=== PATIENT | male | born 1965 | race Caucasian/White ===

== ENCOUNTER 2020-03-02 15:45 | Inpatient (IN) | payer BC, SELFPAY ==
[2020-03-02] VITALS (14 sets, daily range): BP systolic 96–129; BP diastolic 63–87; PULSE 78–121; RESP 14–24; TEMP 36.5–36.9; O2SAT 95–96; BMI 35.2
--- NOTE | 2020-03-02 16:18 | ECG_ITS ---
[facility] Test Date: 2020-03-02 Pat Name: Alfie Sauceda Jr Department: Room: Gender: Male Vice President Of Recruiting: aiden : 1965 Requested By: Bronson Willoughby Order Number: [id number] Mario Alberto MD: Evita Andrade M.D. Measurements Intervals [place] Rate: 152 P: NV: QRS: 1 QRSD: 78 T: 7 QT: 260 QTc: 414 Interpretive Statements ATRIAL FIBRILLATION WITH RAPID VENTRICULAR RESPONSE ABNORMAL RHYTHM ECG No previous ECG available for comparison Electronically Signed On 03-02-2020 20:19:45 MATTRESS MAKER by Evita Andrade M.D. [email or web address] [facility] [email or web address].[email or web address]/store/[id number]
--- NOTE | 2020-03-02 16:18 | XRR_ITS ---
PROCEDURE INFORMATION: Exam: XR Chest, 1 View Exam date and time: 03/02/2020 4:40 PM Age: 55 years old Clinical indication: Chest pain; Additional info: Chest pain, irregular/rapid heart beat TECHNIQUE: Imaging protocol: XR of the chest Views: 1 view. Total images: 1 COMPARISON: No relevant prior studies available. FINDINGS: Lungs: Unremarkable. No consolidation. Pleural space: Unremarkable. No pleural effusion. No pneumothorax. Heart/Mediastinum: Unremarkable. No cardiomegaly. Bones/joints: Unremarkable. XR/XR chest 1V portable [id number] IMPRESSION: No acute findings.
--- NOTE | 2020-03-02 16:27 | W.ED.ARRPALP ---
Documented by User: Bronson King DO 03/03/20 08:43 HPI - Arrhythmia/Palpitations General: Chief Complaint: Arrhythmia/Palpitations Stated Complaint: IRR PULSE/SENT BY LOWE Time Seen by Provider: 03/02/20 16:18 History of Present Illness: HPI narrative: 55-year-old male presents to the emergency room with complaint of rapid heart rate. He has a history of hypertension. He was seen by his doctor and there regular office was noted to be in atrial fibrillation was referred to the emergency room on arrival here he is chest pain-free no shortness of breath no dyspnea or diaphoresis but he is having A. fib with RVR which is new for him. He denies any recent change in medications been taking all of his regular medications as well. MD complaint: rapid heart beat, heart racing and irregular heart beat Onset (ago): unknown Duration: constant Severity: mild Context: occurred during rest Arrhythmia history: other (None) Associated symptoms: Deny anxiety, cough, diaphoresis, muscle cramps, nausea, paresthesias, pre-syncope, sense of impending doom, short of breath, syncope or vomiting Review of Systems Const: Denies: diaphoresis ENMT: Denies: throat pain, ear or mastoid pain, nasal discharge or nasal congestion Card: Denies: syncope or pre-syncope Resp: Denies: dyspnea, productive cough or non-productive cough GI: Denies: nausea or vomiting : Denies: flank pain, dysuria, urinary frequency or urinary urgency Musc: Denies: muscle cramps Skin/Breast: Denies: rash or pruritus Psych: Denies: anxiety PFSH ED PFSH: Medical History Hypertension Physical Exam Const: COMMON NORMALS: no acute distress GENERAL APPEARANCE: cooperative and comfortable ORIENTATION/CONSCIOUSNESS: Yes awake, Yes oriented to person, Yes oriented to place and Yes oriented to time HENMT: COMMON NORMALS: normocephalic, atraumatic and hearing grossly normal bilaterally HEAD & SCALP: normocephalic and atraumatic Neck/C-Spine: COMMON NORMALS: no JVD Resp: COMMON NORMALS: normal respiratory effort, No retractions, No use of accessory muscles and clear to auscultation bilaterally AUSCULTATION: clear to auscultation bilaterally Cardio: COMMON NORMALS: no JVD, regular rate, regular rhythm and No murmurs present (Cardio) RATE: regular rate RHYTHM: regular rhythm GI: COMMON NORMALS: Soft to palpation and No hepatosplenomegaly present AUSCULTATION: Yes normoactive bowel sounds PALPATION: Yes Soft to palpation, No Tenderness to palpation present (GI), No Guarding due to palpation present (GI) and Yes No hepatosplenomegaly present Extremity: COMMON NORMALS: normal to inspection, capillary refill normal, no clubbing, cyanosis or edema, no calf tenderness and no pedal edema Neuro: SENSORIUM/ORIENTATION: Yes oriented to person, Yes oriented to place and Yes oriented to time Skin: COMMON NORMALS: no rashes or lesions noted GENERAL SKIN EXAM: no rashes or lesions noted Course Vital Signs: Vital signs: Vital Signs Temperature 96.5 F L 03/03/20 07:10 Pulse Rate 86 03/03/20 07:10 Respiratory Rate 20 H 03/03/20 07:10 Blood Pressure 130/87 03/03/20 08:17 Pulse Oximetry 92 03/03/20 07:10 MDM - Arrhythmia/Palpitations MDM Narrative: Medical decision making narrative: .Return to Dr. Rashid at change of shift see his notes for final diagnosis and disposition Lab Data: Labs: Lab Results 03/02/20 03/02/20 03/02/20 Range/Units 16:34 16:34 16:34 WBC 6.8 (4.0-10.0) 10^3/ uL RBC 5.02 (4.1-5.3) 10^6/u L Hgb 15.7 (11.7-16.6) g/dL Hct 44.2 (42.0-52.0) % MCV 88.0 (80-94) fL MCH 31.3 (28.0-34.0) pg MCHC 35.5 (30.0-36.0) g/dL RDW 12.0 L (12.1-15.1) % Plt Count 275 (130-400) 10^3/c mm MPV 9.6 (7.4-10.4) fL Neut % (Auto) 58.9 % Lymph % (Auto) 28.5 % Rice % (Auto) 9.4 % Eos % (Auto) 1.8 % Baso % (Auto) 1.0 % Neut # (Auto) 3.99 (1.8-7.7) 10^3/u L Lymph # (Auto) 1.9 (0.8-4.8) 10^3/u L Rice # (Auto) 0.6 (0.2-0.9) 10^3/u L Eos # (Auto) 0.1 (0.0-0.8) 10^3/u L Baso # (Auto) 0.1 (0.0-0.1) 10^3/u L Nucleated RBC % (a uto) 0 % Nucleated RBCs # 0.0 /100WBC D-Dimer (0-0.59) ug/mIFE U Sodium 138 (136-145) mmol/L Potassium 4.5 (3.5-5.1) mmol/L Chloride 104 (98-107) mmol/L Carbon Dioxide 23 (22-29) mmol/L Anion Gap 15.5 (5-19) BUN 14 (6-20) mg/dL Creatinine 0.9 (0.7-1.2) mg/dL GFR Calculation 87.6 L (90-130) mL/min Glucose 109 (65-115) mg/dL Calculated Osmolal ity 287 (285-295) mOsm/k g Calcium 9.4 (8.5-10.5) mg/dL Magnesium (1.7-2.3) mg/dL Total Bilirubin 0.7 (0.15-1.2) mg/dL AST 20 (0-40) U/L ALT 35 (0-41) U/L Alkaline Phosphata se 94 (40-130) IU/L Troponin T Baselin e 6 (0-15) ng/L Total Protein 6.7 (6.6-8.7) g/dL Albumin 4.4 (3.5-5.2) g/dL Globulin 2.3 (1.3-4.6) g/dL TSH 1.62 (0.27-4.20) uIU/ mL Free T4 1.11 (0.82-1.77) ng/d L 03/02/20 03/02/20 Range/Units 16:34 16:34 WBC (4.0-10.0) 10^3/ uL RBC (4.1-5.3) 10^6/u L Hgb (11.7-16.6) g/dL Hct (42.0-52.0) % MCV (80-94) fL MCH (28.0-34.0) pg MCHC (30.0-36.0) g/dL RDW (12.1-15.1) % Plt Count (130-400) 10^3/c mm MPV (7.4-10.4) fL Neut % (Auto) % Lymph % (Auto) % Rice % (Auto) % Eos % (Auto) % Baso % (Auto) % Neut # (Auto) (1.8-7.7) 10^3/u L Lymph # (Auto) (0.8-4.8) 10^3/u L Rice # (Auto) (0.2-0.9) 10^3/u L Eos # (Auto) (0.0-0.8) 10^3/u L Baso # (Auto) (0.0-0.1) 10^3/u L Nucleated RBC % (a uto) % Nucleated RBCs # /100WBC D-Dimer 0.37 (0-0.59) ug/mIFE U Sodium (136-145) mmol/L Potassium (3.5-5.1) mmol/L Chloride (98-107) mmol/L Carbon Dioxide (22-29) mmol/L Anion Gap (5-19) BUN (6-20) mg/dL Creatinine (0.7-1.2) mg/dL GFR Calculation (90-130) mL/min Glucose (65-115) mg/dL Calculated Osmolal ity (285-295) mOsm/k g Calcium (8.5-10.5) mg/dL Magnesium 1.9 (1.7-2.3) mg/dL Total Bilirubin (0.15-1.2) mg/dL AST (0-40) U/L ALT (0-41) U/L Alkaline Phosphata se (40-130) IU/L Troponin T Baselin e (0-15) ng/L Total Protein (6.6-8.7) g/dL Albumin (3.5-5.2) g/dL Globulin (1.3-4.6) g/dL TSH (0.27-4.20) uIU/ mL Free T4 (0.82-1.77) ng/d L EKG Data^: EKG 1: Other EKG comments: Chest X-Ray 03/02/20 16:18 IMPRESSION: No acute findings. Discharge Plan Discharge Patient Disposition: Admitted As Inpatient Admit Provider: Oxana Meza Clinical Impression: Atrial fibrillation Condition: Stable Coding Level of Care Code ED Private Branch Exchange Service Advisor for Chg Fwd Exam Comprehensive Documented by User: Sanket Rashid MD 03/02/20 18:20 HPI - Arrhythmia/Palpitations General: Chief Complaint: Arrhythmia/Palpitations Stated Complaint: IRR PULSE/SENT BY LOWE Time Seen by Provider: 03/02/20 16:18 History of Present Illness: Associated symptoms: Deny nausea or vomiting Review of Systems Const: Denies: fever(s), chills, body aches or change in appetite Eyes: Denies: blurry vision or eye discomfort ENMT: Denies: throat pain or dental pain Card: Reports: palpitations; Denies: chest pain Resp: Denies: dyspnea GI: Denies: abdominal pain, nausea, vomiting or diarrhea : Denies: dysuria Musc: Denies: neck pain or back pain Skin/Breast: Denies: rash Neuro: Denies: headache(s) Psych: Denies: depression Reynold/Lymph: Denies: easy bruising All/Imm: Denies: urticaria PFS ED PFSH: Medical History Hypertension Physical Exam Const: COMMON NORMALS: no acute distress, patient oriented x3 and healthy appearing HENMT: COMMON NORMALS: normocephalic and atraumatic HEAD & SCALP: normocephalic and atraumatic Eye: COMMON NORMALS: Equal, round and reactive pupils present and EOMs intact bilaterally PUPIL: Yes Equal, round and reactive pupils present Neck/C-Spine: COMMON NORMALS: full ROM and supple Chest: COMMONS NORMALS: normal inspection of the chest and normal palpation of entire chest wall Resp: COMMON NORMALS: normal respiratory effort, No retractions, No use of accessory muscles and clear to auscultation bilaterally AUSCULTATION: clear to auscultation bilaterally Cardio: COMMON NORMALS: No murmurs present (Cardio) RATE: tachycardic RHYTHM: abnormal rhythm irregularly irregular GI: COMMON NORMALS: Normal to inspection, nondistended, normoactive bowel sounds present, Soft to palpation, non-tender and no masses PALPATION: Yes Soft to palpation Extremity: COMMON NORMALS: normal to inspection and full ROM Neuro: COMMON NORMALS: patient oriented x3, moves all extremities and no focal motor deficits Psych: COMMON NORMALS: mental status grossly normal, Normal thought process present and cooperative THOUGHT PROCESS: Normal thought process present Skin: COMMON NORMALS: no rashes or lesions noted and no wounds GENERAL SKIN EXAM: no rashes or lesions noted Course Vital Signs: Vital signs: Vital Signs Temperature 96.5 F L 03/03/20 07:10 Pulse Rate 86 03/03/20 07:10 Respiratory Rate 20 H 03/03/20 07:10 Blood Pressure 130/87 03/03/20 08:17 Pulse Oximetry 92 03/03/20 07:10 MDM - Arrhythmia/Palpitations MDM Narrative: Medical decision making narrative: Patient presents here with new onset A. fib with RVR. Patient's been well-appearing here and was started on a Cardizem drip. Spoke to hospitalist and will admit at this time. Lab Data: Labs: Lab Results 03/02/20 03/02/20 03/02/20 Range/Units 16:34 16:34 16:34 WBC 6.8 (4.0-10.0) 10^3/ uL RBC 5.02 (4.1-5.3) 10^6/u L Hgb 15.7 (11.7-16.6) g/dL Hct 44.2 (42.0-52.0) % MCV 88.0 (80-94) fL MCH 31.3 (28.0-34.0) pg MCHC 35.5 (30.0-36.0) g/dL RDW 12.0 L (12.1-15.1) % Plt Count 275 (130-400) 10^3/c mm MPV 9.6 (7.4-10.4) fL Neut % (Auto) 58.9 % Lymph % (Auto) 28.5 % Rice % (Auto) 9.4 % Eos % (Auto) 1.8 % Baso % (Auto) 1.0 % Neut # (Auto) 3.99 (1.8-7.7) 10^3/u L Lymph # (Auto) 1.9 (0.8-4.8) 10^3/u L Rice # (Auto) 0.6 (0.2-0.9) 10^3/u L Eos # (Auto) 0.1 (0.0-0.8) 10^3/u L Baso # (Auto) 0.1 (0.0-0.1) 10^3/u L Nucleated RBC % (a uto) 0 % Nucleated RBCs # 0.0 /100WBC D-Dimer (0-0.59) ug/mIFE U Sodium 138 (136-145) mmol/L Potassium 4.5 (3.5-5.1) mmol/L Chloride 104 (98-107) mmol/L Carbon Dioxide 23 (22-29) mmol/L Anion Gap 15.5 (5-19) BUN 14 (6-20) mg/dL Creatinine 0.9 (0.7-1.2) mg/dL GFR Calculation 87.6 L (90-130) mL/min Glucose 109 (65-115) mg/dL Calculated Osmolal ity 287 (285-295) mOsm/k g Calcium 9.4 (8.5-10.5) mg/dL Magnesium (1.7-2.3) mg/dL Total Bilirubin 0.7 (0.15-1.2) mg/dL AST 20 (0-40) U/L ALT 35 (0-41) U/L Alkaline Phosphata se 94 (40-130) IU/L Troponin T Baselin e 6 (0-15) ng/L Total Protein 6.7 (6.6-8.7) g/dL Albumin 4.4 (3.5-5.2) g/dL Globulin 2.3 (1.3-4.6) g/dL TSH 1.62 (0.27-4.20) uIU/ mL Free T4 1.11 (0.82-1.77) ng/d L 03/02/20 03/02/20 Range/Units 16:34 16:34 WBC (4.0-10.0) 10^3/ uL RBC (4.1-5.3) 10^6/u L Hgb (11.7-16.6) g/dL Hct (42.0-52.0) % MCV (80-94) fL MCH (28.0-34.0) pg MCHC (30.0-36.0) g/dL RDW (12.1-15.1) % Plt Count (130-400) 10^3/c mm MPV (7.4-10.4) fL Neut % (Auto) % Lymph % (Auto) % Rice % (Auto) % Eos % (Auto) % Baso % (Auto) % Neut # (Auto) (1.8-7.7) 10^3/u L Lymph # (Auto) (0.8-4.8) 10^3/u L Rice # (Auto) (0.2-0.9) 10^3/u L Eos # (Auto) (0.0-0.8) 10^3/u L Baso # (Auto) (0.0-0.1) 10^3/u L Nucleated RBC % (a uto) % Nucleated RBCs # /100WBC D-Dimer 0.37 (0-0.59) ug/mIFE U Sodium (136-145) mmol/L Potassium (3.5-5.1) mmol/L Chloride (98-107) mmol/L Carbon Dioxide (22-29) mmol/L Anion Gap (5-19) BUN (6-20) mg/dL Creatinine (0.7-1.2) mg/dL GFR Calculation (90-130) mL/min Glucose (65-115) mg/dL Calculated Osmolal ity (285-295) mOsm/k g Calcium (8.5-10.5) mg/dL Magnesium 1.9 (1.7-2.3) mg/dL Total Bilirubin (0.15-1.2) mg/dL AST (0-40) U/L ALT (0-41) U/L Alkaline Phosphata se (40-130) IU/L Troponin T Baselin e (0-15) ng/L Total Protein (6.6-8.7) g/dL Albumin (3.5-5.2) g/dL Globulin (1.3-4.6) g/dL TSH (0.27-4.20) uIU/ mL Free T4 (0.82-1.77) ng/d L Imaging Data^: CXR: Radiologist's impression: [address] [address] XRay Report Signed Patient: Alfie Sauceda Jr Unit #: [id number] : 1965 Age/Sex: 55 / M ADM Date: 03/02/20 Loc: ER Room/Bed: Attending Dr: Ordering Provider/Ordering MD: Bronson King DO Date of Service: 03/02/20 Procedure(s): XR chest 1V portable [id number] Accession Number(s): [id number] Report Number: [id number] PROCEDURE INFORMATION: Exam: XR Chest, 1 View Exam date and time: 03/02/2020 4:40 PM Age: 55 years old Clinical indication: Chest pain; Additional info: Chest pain, irregular/rapid heart beat TECHNIQUE: Imaging protocol: XR of the chest Views: 1 view. Total images: 1 COMPARISON: No relevant prior studies available. FINDINGS: Lungs: Unremarkable. No consolidation. Pleural space: Unremarkable. No pleural effusion. No pneumothorax. Heart/Mediastinum: Unremarkable. No cardiomegaly. Bones/joints: Unremarkable. XR/XR chest 1V portable [id number] IMPRESSION: No acute findings. EKG Data^: EKG 1: Attestation: I personally reviewed and interpreted this EKG as follows: EKG interpretation date: 03/02/20 EKG interpretation time: 17:53 Interpretation: afib with rvr hr [address] or t wave abnormalities qrs 89 qtc 374 Other EKG comments: Chest X-Ray 03/02/20 16:18 IMPRESSION: No acute findings. Critical Care Time Critical Care Time: Critical Care Time: Yes Total Critical Care Time: 36 Attestation: This case had a high probability of a clinically significant, sudden, or life threatening deterioration of this patient's condition which required my full and direct attention, intervention and personal management. Discharge Plan Discharge Patient Disposition: Admitted As Inpatient Admit Provider: Oxana Meza Clinical Impression: Atrial fibrillation Condition: Stable Coding Level of Care Code ED Private Branch Exchange Service Advisor for Chg Fwd Exam Comprehensive
[2020-03-02] MEDS: metoprolol tartrate 1 mg/1 mL SDV 5 mL 5 MG IV (16:38)
[2020-03-02 16:48] LABS: Basophils # 0.1 10^3/uL (0.0-0.1); Eosinophils # 0.1 10^3/uL (0.0-0.8); Eosinophils % 1.8 %; Hematocrit 44.2 % (42.0-52.0); Hemoglobin 15.7 g/dL (11.7-16.6); Lymphocytes # 1.9 10^3/uL (0.8-4.8); Lymphocytes % 28.5 %; Mean Corpuscular HGB Conc 35.5 g/dL (30.0-36.0); Mean Corpuscular Hemoglobin 31.3 pg (28.0-34.0); Mean Platelet Volume 9.6 fL (7.4-10.4); Monocytes # 0.6 10^3/uL (0.2-0.9); Monocytes % 9.4 %; Neutrophils # 3.99 10^3/uL (1.8-7.7); Neutrophils % 58.9 %; Nucleated Red Blood Cells % 0 %; Platelet Count 275 10^3/cmm (130-400); Red Blood Count 5.02 10^6/uL (4.1-5.3); White Blood Count 6.8 10^3/uL (4.0-10.0)
[2020-03-02] MEDS: metoprolol tartrate 50 mg Tablet PO (16:50)
[2020-03-02 17:39] LABS: Troponin(5th) Baseline 6 ng/L (0-15)
[2020-03-02 17:41] LABS: Alanine Aminotransferase 35 U/L (0-41); Albumin Level 4.4 g/dL (3.5-5.2); Alkaline Phosphatase 94 IU/L (40-130); Anion Gap 15.5 (5-19); Aspartate Amino Transferase 20 U/L (0-40); Blood Urea Nitrogen 14 mg/dL (6-20); Calcium 9.4 mg/dL (8.5-10.5); Carbon Dioxide 23 mmol/L (22-29); Chloride 104 mmol/L (98-107); Globulin 2.3 g/dL (1.3-4.6); Glomerular Filtration Rate 87.6 mL/min (90-130); Glucose 109 mg/dL (65-115); Osmolality Calculated 287 mOsm/kg (285-295); Potassium 4.5 mmol/L (3.5-5.1); Sodium 138 mmol/L (136-145); Thyroid Stimulating Hormone 1.62 uIU/mL (0.27-4.20); Total Bilirubin 0.7 mg/dL (0.15-1.2); Total Protein 6.7 g/dL (6.6-8.7)
[2020-03-02 18:06] LABS: Free T4 Free Thyroxine 1.11 ng/dL (0.82-1.77)
--- NOTE | 2020-03-02 18:18 | ECG_ITS ---
[facility] Test Date: 2020-03-02 Pat Name: Alfie Sauceda Jr Department: Room: Gender: Male Acquisitions Analyst: : 1965 Requested By: Bronson Willoughby Order Number: [id number] Mario Alberto MD: Evita Andrade M.D. Measurements Intervals [place] Rate: 106 P: FL: QRS: -3 QRSD: 89 T: 10 QT: 312 QTc: 416 Interpretive Statements ATRIAL FIBRILLATION WITH RAPID VENTRICULAR RESPONSE Compared to ECG 03/02/2020 16:07:17 No significant changes Electronically Signed On 03-02-2020 20:45:19 TRAVEL OT by Evita Andrade M.D. [email or web address] [email or web address] [email or web address]/[email or web address]/OM/[id number]
[2020-03-02 18:59] LABS: Troponin 5 2HR Delta 0 ABS# (0-10)
--- NOTE | 2020-03-02 19:03 | PC.NURSE ---
REPORT RECEIVED FROM ROSARIO ARSHAD, CARE TRANSFERRED TO PAVITHRA PEREZ
--- NOTE | 2020-03-02 19:26 | PM.HP ---
Providers/Chief Complaint Admitting Physician: Oxana Meza MD Primary Care Provider: Ata Mock MD Chief Complaint: IRR PULSE/SENT BY LOWE History of Present Illness Alfie Sauceda Jr is a 55 year old male Medications/Allergies Home Medications Medication Instructions Recorded Confirmed Last Taken Type Steroid Nasal [place] [facility] See Rx Instructions .ROUTE .COMPLEX 03/02/20 03/02/20 Unknown History amlodipine-valsartan 1 tab PO DAILY 03/02/20 03/02/20 03/02/20 09:00 History spironolactone 25 mg PO DAILY 03/02/20 03/02/20 03/02/20 History 12.5MG Allergies Allergy/AdvReac Type Severity Reaction Status Date / Time No Known Allergies Allergy Verified 03/02/20 16:35 Vitals/I&O/Wt Last Vital Signs Temp 97.7 F 03/02/20 16:09 Pulse 87 03/02/20 19:06 Resp 14 03/02/20 19:06 BP 96/63 03/02/20 19:06 Pulse Ox 95 03/02/20 19:06 Weight last 48 hrs Weight 111.13 kg Data : 03/02/20 16:34 03/02/20 16:34 Coding Level of Care Code Acute Computer Scientist for Chg Ifrah
[2020-03-02 20:46] LABS: Magnesium 1.9 mg/dL (1.7-2.3)
[2020-03-02 20:47] LABS: D Dimer 0.37 ug/mIFEU (0-0.59)
--- NOTE | 2020-03-02 21:24 | PM.HP ---
Providers/Chief Complaint Admitting Physician: Oxana Meza MD Primary Care Provider: Ata Mock MD Chief Complaint: IRR PULSE/SENT BY LOWE History of Present Illness Alfie Sauceda Jr is a 55 year old male with PMH HTN who went to his PCP today and was incidentally found t be in A fib with RVR .Denies chets pain, dyspnea, palpitations, syncope , palpitations. I the ER found to be in a fib with RVR, given metoprolol without relief, started on cardizem drip and now admitted to CSU. Troponin series negative, no acute ST-T wave changes. Review of Systems General: Reports: 10 or more systems reviewed and unremarkable except in HPI and below Const: Denies: fever(s), chills or body aches Eyes: Denies: change in vision, blurry vision or photophobia ENMT: Reports: hoarseness; Denies: throat pain, enlarged tonsils, odynophagia or nasal congestion Card: Denies: chest pain, palpitations, irregular heart rhythm, edema, swelling of feet/ankles, lightheadedness, pre-syncope, dyspnea on exertion or orthopnea Resp: Denies: dyspnea, productive cough, non-productive cough, wheezing, stridor, pain on inspiration, change in phlegm color, hemoptysis or chest congestion GI: Denies: abdominal pain, nausea, vomiting, hematemesis, coffee ground emesis, dysphagia, heartburn, diarrhea, constipation, GI cramping, change in stool character, hematochezia or melena : Denies: flank pain, dysuria, urinary frequency, urinary urgency, urinary hesitancy or hematuria Musc: Denies: neck pain, back pain, extremity pain, joint swelling, joint warmth or deformity Neuro: Denies: headache(s), numbness in extremities, weakness in extremities, sensory changes, difficulty walking, frequent falls, dizziness, vertigo, behavioral changes, Slurred speech present or seizure-like activity Psych: Denies: anxiety, depression, suicidal ideation or homicidal ideation Endo: Denies: polyuria, polydipsia, tired all the time, cold intolerance or hot flashes Reynold/Lymph: Denies: easy bruising or easy bleeding Medications/Allergies Home Medications Medication Instructions Recorded Confirmed Last Taken Type Steroid Nasal [place] [facility] See Rx Instructions .ROUTE .COMPLEX 03/02/20 03/02/20 Unknown History amlodipine-valsartan 1 tab PO DAILY 03/02/20 03/02/20 03/02/20 09:00 History spironolactone 25 mg PO DAILY 03/02/20 03/02/20 03/02/20 History 12.5MG Allergies Allergy/AdvReac Type Severity Reaction Status Date / Time No Known Allergies Allergy Verified 03/02/20 16:35 PFSH Acute PFSH: Medical History (Updated 03/02/20 @ 21:30 by Oxana Meza MD) Hypertension Vitals/I&O/Wt Last Vital Signs Temp 97.7 F 03/02/20 16:09 Pulse 87 03/02/20 19:06 Resp 14 03/02/20 19:06 BP 98/72 03/02/20 20:08 Pulse Ox 95 03/02/20 19:06 Weight last 48 hrs Weight 111.13 kg Physical Exam Const: COMMON NORMALS: no acute distress, average body habitus, patient oriented x3, no limitations, healthy appearing, alert and well nourished HENMT: COMMON NORMALS: normocephalic and atraumatic HEAD & SCALP: normocephalic and atraumatic Eye: COMMON NORMALS: Equal, round and reactive pupils present, EOMs intact bilaterally, conjunctivae normal and no scleral icterus CONJUNCTIVA: Yes conjunctivae normal PUPIL: Yes Equal, round and reactive pupils present Neck/C-Spine: COMMON NORMALS: no JVD Resp: COMMON NORMALS: normal respiratory effort, No retractions, No use of accessory muscles, clear to auscultation bilaterally and percussion normal AUSCULTATION: clear to auscultation bilaterally PERCUSSION: percussion normal Cardio: COMMON NORMALS: no JVD, regular rate, regular rhythm, S1 normal heart sound present, S2 normal heart sound present, No gallops present (Cardio), No clicks present (Cardio), No murmurs present (Cardio), No rub (Cardio) and Peripheral pulses 2+ throughout RATE: regular rate RHYTHM: regular rhythm HEART SOUNDS: S1 normal heart sound present and S2 normal heart sound present PERIPHERAL PULSES: Peripheral pulses 2+ throughout GI: COMMON NORMALS: Normal to inspection, nondistended, normoactive bowel sounds present, Soft to palpation, non-tender, No hepatosplenomegaly present, no masses and no bruits PALPATION: Yes Soft to palpation and Yes No hepatosplenomegaly present Extremity: COMMON NORMALS: normal to inspection, full ROM, capillary refill normal, no joint enlargement, no clubbing, cyanosis or edema, no calf tenderness and no pedal edema Neuro: COMMON NORMALS: patient oriented x3, CN's II-XII intact bilaterally, moves all extremities, no focal motor deficits, no sensory deficits noted, deep tendon reflexes 2+ bilaterally and gait normal SENSORIUM/ORIENTATION: Yes alert Psych: COMMON NORMALS: mental status grossly normal, Normal thought process present, cooperative, normal affect, speech normal, activity/motor behavior normal, denies hallucinations, denies homicidal ideation and denies suicidal ideation SPEECH: Yes normal speech THOUGHT PROCESS: Normal thought process present Skin: COMMON NORMALS: no rashes or lesions noted, no wounds, turgor normal, no jaundice, no petechiae and no mottling GENERAL SKIN EXAM: no rashes or lesions noted and turgor normal Data : 03/02/20 16:34 03/02/20 16:34 A&P Assessment and plan (1) Atrial fibrillation: reportedly new onset for the patient no past h/o the same No acute ST-T wavce chnages on EKG Troponin series without significant delta at 2 hrs TSH within range no recent illness, CXR without consolidation BP currenlty well controlled Started on cardizem infusion in the ER, now admitted to CSU monitor on telemetry echocardiogram to evaute LV function, valvular abormalities electrolytes within range check U tox Status: Acute (2) Hypertension: Status: Acute Attestations Medical Necessity Statement*: anticipate >2MN admission for evaluation and management of new onset A fib Coding Level of Care Code Acute Senior Insight Manager for Chg Fwd Diagnoses Atrial fibrillation I48.91 Hypertension I10
[2020-03-03] VITALS (7 sets, daily range): BP systolic 113–132; BP diastolic 78–93; PULSE 74–108; RESP 14–20; TEMP 35.8–36.7; O2SAT 92–95
[2020-03-03 00:56] LABS: Amphetamines Screen Urine Negative (Negative); Barbiturates Screen Urine Negative (Negative); Benzodiazepines Screen Urine Negative (Negative); Cocaine Screen Urine Negative (Negative); Opiate Screen Urine Negative (Negative); PCP Screen Urine Negative (Negative); THC Screen Urine Negative (Negative)
[2020-03-03 05:23] LABS: Anion Gap 13.4 (5-19); Blood Urea Nitrogen 14 mg/dL (6-20); Carbon Dioxide 26 mmol/L (22-29); Chloride 104 mmol/L (98-107); Glomerular Filtration Rate 87.6 mL/min (90-130); Glucose 86 mg/dL (65-115); Osmolality Calculated 288 mOsm/kg (285-295); Potassium 4.4 mmol/L (3.5-5.1); Sodium 139 mmol/L (136-145)
[2020-03-03 05:27] LABS: Calcium 9.3 mg/dL (8.5-10.5)
--- NOTE | 2020-03-03 07:00 | USCV_ITS ---
Alfie Sauceda Jr Age: 55 Gender: M : 1965 Exam Date: 03/03/2020 06:09 Ordering Phys: Oxana Meza MD Technologist: Hannah Vogt [place]am [place] [facility] [place] AFIB BP: 121 / 91 HR: 74 Rhythm: Sinus Technical Quality: Adequate MEASUREMENTS (Male / Female) Normal Values 2D ECHO LV Diastolic Diameter PLAX 4.4 cm 4.2 - 5.9 / 3.9 - 5.3 cm LV Systolic Diameter PLAX 3.7 cm LV Chamber Size 3.5 cm IVS Diastolic Thickness 1.6 cm 0.6 - 1.0 / 0.6 - 0.9 cm IVS Systolic Thickness 2.2 cm LVPW Diastolic Thickness 2.0 cm 0.6 - 1.0 / 0.6 - 0.9 cm LVPW Systolic Thickness 2.0 cm RV Chamber Size 2.6 cm LVOT Diameter 2.0 cm LV Ejection Fraction 2D Teich 32.1 % LV Ejection Fraction MOD 2C 45.5 % LV Ejection Fraction 2C AL 47.1 % LA Diameter 4.6 cm LA Width 4.4 cm LA Height 5.8 cm RA Width 2.7 cm RA Height 4.4 cm Aorta at Sinotubular Diameter 3.0 cm M-MODE LV Diastolic Diameter MM 5.5 cm 4.2 - 5.9 / 3.9 - 5.3 cm LV Systolic Diameter MM 3.2 cm LV Ejection Fraction MM Teich 72.8 % IVS Diastolic Thickness MM 1.3 cm 0.6 - 1.0 / 0.6 - 0.9 cm IVS Systolic Thickness MM 1.6 cm LVPW Diastolic Thickness MM 1.1 cm 0.6 - 1.0 / 0.6 - 0.9 cm LVPW Systolic Thickness MM 1.7 cm Aortic Annulus Diameter 3.9 cm LA Ao Ratio MM 1.3 MV E Point Septal Separation 0.3 cm DOPPLER AV Peak Velocity 134.0 cm/s LVOT Peak Velocity 98.0 cm/s AV Area Cont Eq vti 2.0 cm squared AV Area Cont Eq pk 2.4 cm squared MV Area PHT 3.1 cm squared Mitral E to A Ratio 1.9 MV E' Velocity 48.0 cm/s Mitral E to MV E' Ratio 5.2 Mitral E to LV E' Lateral Ratio 5.0 Mitral E to LV E' Septal Ratio 5.4 TR Peak Velocity 244.0 cm/s TR Peak Gradient 23.8 mmHg TV Peak E Velocity 63.0 cm/s Right Atrial Pressure 3.0 mmHg Pulmonary Artery Systolic Pressu 26.8 mmHg PV Peak Velocity 76.0 cm/s RV Acceleration Time 0.1 s RV Ejection Time 0.4 s RV AcT/ET 0.4 FINDINGS Left Ventricle Normal left ventricular size borderline low ejection fraction of 50 to 55%. Right Ventricle The right ventricle is normal in size and function. Right Atrium The right atrium is normal in size. Left Atrium Mildly increased left atrial size. Mitral Valve Trace mitral valve regurgitation. Aortic Valve No gross abnormalities noted Tricuspid Valve Trace to mild tricuspid valve regurgitation. Estimated pulmonary artery peak systolic pressure 27 mmHg Pulmonic Valve No gross abnormalities noted . Pericardium Normal pericardium without effusion. Aorta Normal aortic annulus size. CONCLUSIONS Normal left ventricular size borderline low ejection fraction of 50 to 55%. Mild diffuse hypokinesis left ventricle. Because of the arrhythmia and the poor ultrasonic window, segmental wall motion analysis is somewhat difficult Mildly increased left atrial size. Trace mitral valve regurgitation. Trace to mild tricuspid valve regurgitation. Estimated pulmonary artery peak systolic pressure 27 mmHg There is no pericardial effusion. There are no intracardiac masses. No previous study is available for comparison. Dr Joseph Judge MD [facility] (Electronically Signed) Final Date: 03 March 2020 20:12 S
[2020-03-03] MEDS: losartan 50 mg Tablet 100 MG PO (08:17)
[2020-03-03] MEDS: apixaban 5 mg Tablet PO (08:17)
[2020-03-03] MEDS: amlodipine 10 mg Tablet PO (08:17)
--- NOTE | 2020-03-03 08:35 | PC.CHAP ---
Pastoral Care Encounter/Spiritual Assessment Type of Contact [] Declined telesales professional visit [] Patient/Family/Request visit [] Outpatient visit [] Follow-up visit [] Physician referral [] Code/Alert [x] Routine visit [] Staff referral [] Actively dying [] Patient sleeping [] Family support [] [] Out of room [] Palliative care [] [] Receiving care in room [] Pre-surgical visit [] Trauma [] Long length of stay [] ICU visit [] Other: Relational/Emotional Strength [] Patient feels connected with others/family/visitors/staff [] Distress [] Loneliness/isolation [] Abandonment Spirituality of Patient [] Person of Alissa [] Attends Religious of their Alissa [] Believes in Prayer [] Reads Bible or Voodoo materials [] There are Spiritual issues to be addressed Electrical Controls Assembler Interventions [x] Prayer [x] Active listening [x] Non-anxious presence [x] Spiritual/emotional support [] Crisis/trauma care [] Spiritual counseling [] Bereavement support [] Provided bereavement packet [] Provided Bible/devotional materials [] Provided toy/stuffed animal, coloring book to patient or family member [] Provided Communion [] Anointing/Whitt [] Salvation [x] Completed spiritual assessment [] Other: Impact on Illness or Injury [] Angry [] Fearful [] Anxious [] Often cries [] Exhaustion [] Unable to work [] Unable to attend confucianist [] Unable to walk/stand [] Unable to read [] Unable to drive [] Unable to eat/drink [] Unable to sleep [] Unable to be with family [] Patient intubated [] Other: Summary felling better Time spent with patient 5 min
[2020-03-03] MEDS: dilTIAZem 30 mg Tablet PO (10:03)
--- NOTE | 2020-03-03 10:55 | PM.DCS ---
Discharge Providers Date of Admission: 03/02/20 17:49 Date of Discharge: March 03, 2020 Attending Provider at Admission: Oxana Meza MD Attending Provider at Discharge: Oxana Meza MD Primary Care Provider: Ata Mock MD Diagnoses at Discharge Discharge Diagnosis (1) Atrial fibrillation: Status: Acute (2) Hypertension: Status: Acute Reason for Visit Reason for Visit: IRR PULSE/SENT BY [facility] Course Hospital Course patient is a 55 year old male with PMH HTN, controlled after lifestyle modification for 7-8 years, then again diagnosed earlier this year, presented after being incidnetally found to have a fib with RVR at his doctor's visit. Patient was asymptomatic, denies feeling any palpitations or dyspnea. Recalling past episodes, stated that he felt palpitations only after exercise. He is physically active, does weights and cardio training daily, estimates he walks ~6 miles daily with his dog. In er HR noted to be 130s in a afib. troponin series negative. Needed cardizem drip initially to control HR, transitioned to po metoprolol on discharge. Rate controlled between 80-100 bpm. Eliquis started for a/c - cardiology and PCP visits arranged- f/up within one week. echocardiogram taken, pending at time of discharge. Physical Exam Narrative: EXAM NARRATIVE: GEN: Awake, alert and oriented, no acute distress CVS: S1S2 N RS: CTA B/L Abd: Soft, nt/nd , bs+ GROUP RESERVATIONS COORDINATOR: no focal neuro deficits Discharge Data Data Completed and Pending: Completed Studies During Hospitalization Category Date Time Status XR chest 1V kervin ble [id number] Stat Exams 03/02/20 16:18 Completed Pending at discharge Category Date Time Status CV echo complete* [id number] Routine Ultrasound 03/03/20 07:00 Taken Labs from last 24 hours 03/03/20 03/03/20 03/02/20 03:35 00:30 18:35 WBC RBC Hgb Hct MCV MCH MCHC RDW Plt Count MPV Neut % (Auto) Lymph % (Auto) [place] % (Auto) Eos % (Auto) Baso % (Auto) Neut # (Auto) Lymph # (Auto) [place] # (Auto) Eos # (Auto) Baso # (Auto) Nucleated RBC % (a uto) Nucleated RBCs # D-Dimer Sodium 139 Potassium 4.4 Chloride 104 Carbon Dioxide 26 Anion Gap 13.4 BUN 14 Creatinine 0.9 GFR Calculation 87.6 L Glucose 86 Calculated Osmolal ity 288 Calcium 9.3 Magnesium Total Bilirubin AST ALT Alkaline Phosphata se Troponin T Baselin e Troponin T 120 Min [place] 6.00 Delta Troponin T 0 Total Protein Albumin Globulin TSH Free T4 Urine Opiates Scre en Negative Ur Barbiturates Sc reen Negative Ur Phencyclidine S crn Negative Ur Amphetamines Sc reen Negative U Benzodiazepines Scrn Negative Urine Cocaine Scre en Negative U Marijuana (THC) Screen Negative 03/02/20 03/02/20 03/02/20 16:34 16:34 16:34 WBC RBC Hgb Hct MCV MCH MCHC RDW Plt Count MPV Neut % (Auto) Lymph % (Auto) [place] % (Auto) Eos % (Auto) Baso % (Auto) Neut # (Auto) Lymph # (Auto) [place] # (Auto) Eos # (Auto) Baso # (Auto) Nucleated RBC % (a uto) Nucleated RBCs # D-Dimer 0.37 Sodium Potassium Chloride Carbon Dioxide Anion Gap BUN Creatinine GFR Calculation Glucose Calculated Osmolal ity Calcium Magnesium 1.9 Total Bilirubin AST ALT Alkaline Phosphata se Troponin T Baselin e 6 Troponin T 120 Min [place] Troponin T Total Protein Albumin Globulin TSH Free T4 Urine Opiates Scre en Ur Barbiturates Sc reen Ur Phencyclidine S crn Ur Amphetamines Sc reen U Benzodiazepines Scrn Urine Cocaine Scre en U Marijuana (THC) Screen 03/02/20 03/02/20 16:34 16:34 WBC 6.8 RBC 5.02 Hgb 15.7 Hct 44.2 MCV 88.0 MCH 31.3 MCHC 35.5 RDW 12.0 L Plt Count 275 MPV 9.6 Neut % (Auto) 58.9 Lymph % (Auto) 28.5 [place] % (Auto) 9.4 Eos % (Auto) 1.8 Baso % (Auto) 1.0 Neut # (Auto) 3.99 Lymph # (Auto) 1.9 [place] # (Auto) 0.6 Eos # (Auto) 0.1 Baso # (Auto) 0.1 Nucleated RBC % (a uto) 0 Nucleated RBCs # 0.0 D-Dimer Sodium 138 Potassium 4.5 Chloride 104 Carbon Dioxide 23 Anion Gap 15.5 BUN 14 Creatinine 0.9 GFR Calculation 87.6 L Glucose 109 Calculated Osmolal ity 287 Calcium 9.4 Magnesium Total Bilirubin 0.7 AST 20 ALT 35 Alkaline Phosphata se 94 Troponin T Baselin e Troponin T 120 Min [place] Troponin T Total Protein 6.7 Albumin 4.4 Globulin 2.3 TSH 1.62 Free T4 1.11 Urine Opiates Scre en Ur Barbiturates Sc reen Ur Phencyclidine S crn Ur Amphetamines Sc reen U Benzodiazepines Scrn Urine Cocaine Scre en U Marijuana (THC) Screen Vitals: Last Vital Signs Temp 96.5 F L 03/03/20 07:10 Pulse 86 03/03/20 07:10 Resp 20 H 03/03/20 07:10 BP 130/87 03/03/20 08:17 Pulse Ox 92 03/03/20 07:10 Discharge Plan Discharge Patient Disposition: Home Condition: Stable Prescriptions: New metoprolol tartrate 25 mg Tablet 25 mg PO BID@0900,2100 30 Days Qty: 60 RF: 0 Eliquis 5 mg Tablet 5 mg PO BID 7 Days Qty: 14 RF: 0 Continued amlodipine-valsartan 10-320 mg tablet 1 tab PO DAILY RF: 0 Steroid Nasal [place] Otc See Rx Instructions .ROUTE .COMPLEX RF: 0 Discontinued spironolactone 25 mg tablet 25 mg PO DAILY RF: 0 Discharge Orders: Discharge Order (Routine); Ordered 03/03/20 Ordered By: Oxana Meza Referrals: Eivta Andrade MD [Physician] - (Please follow-up with Dr. Andrade on March 24 at 1:30p.m. If you have any questions or need to reschedule. Please call ) Ata Mock MD [Primary Care Provider] - (Please keep your appointment with Dr. Mock on March 16 at 8:00a.m. If you have any questions or need to reschedule. Please call ) Discharge Diet: Cardiac Discharge Activity: Limit activity as instructed Patient Instructions: Metoprolol (By mouth), Apixaban (By mouth), Atrial Fibrillation (DC), Hypertension (DC) Discharge Attestations Time Spent in Discharge Care*: greater than 30 min Quality Metrics Clinical Quality Measures During this hospital stay, did patient experience: None Coding Level of Care Code Acute Attraction Worker for Chg Fwd Diagnoses Atrial fibrillation I48.91 Hypertension I10
[2020-03-03] MEDS: metoprolol tartrate 25 mg Tablet PO (14:36)
== END 2020-03-03 17:44 | disposition home or self-care (01) | DRG 310 ==
LOC: ER 17:01 → CSU 18:14
PROVIDERS: Family Medicine; Internal Medicine; Admitting Provider Student in an Organized Health Care Education/Training Program; Emergency Provider Emergency Medicine; PCP Family Medicine; Visit Provider Student in an Organized Health Care Education/Training Program
DX: I48.91 Unspecified atrial fibrillation (principal); I10 Essential (primary) hypertension
CPT/HCPCS: 12345; 36415; 71045; 80048; 80053; 80306; 83735; 84439; 84443; 84484; 85025; 85378; 93005; 93306; 99283; J3490

== ENCOUNTER 2023-07-20 20:34 | Emergency (ER) | payer BC, SELFPAY ==
[2023-07-20 20:42] VITALS: BP 121/84; PULSE 95; RESP 18; TEMP 36.5; O2SAT 94; BMI 33.0
--- NOTE | 2023-07-20 21:47 | XRR_ITS ---
PROCEDURE INFORMATION: Exam: XR Left Ribs with PA Chest Exam date and time: 07/20/2023 10:36 PM Age: 58 years old Clinical indication: Injury or trauma; Fall; Chest wall and rib area, left side; Other: Unknown; Blunt trauma; Additional info: Fall pain TECHNIQUE: Imaging protocol: Radiologic exam of the left ribs with PA chest. Views: 3 views COMPARISON: CR XR chest 1V portable [id number] 03/02/2020 4:21 PM FINDINGS: Lungs: Left lower lung zone contusion. Pleural spaces: No definite pneumothorax. Heart/Mediastinum: Unremarkable. No cardiomegaly. Bones/joints: Nondisplaced fracture of the body of the scapula. Minimally displaced fractures of the lateral arches of the left 2nd, 3rd, 4th, 5th, 6, 7th, 8th and 9th ribs. No segmental rib fractures. Mild curvature of the thoracic spine convex to the right. Soft tissues: There is left chest wall soft tissue emphysema. XR/XR ribs LT mn 3V w CXR1V [id number] IMPRESSION: 1. Multiple left rib fractures with soft tissue emphysema but no definite pneumothorax. Left lower lung zone contusion. 2. Left scapular fracture
--- NOTE | 2023-07-20 21:47 | XRR_ITS ---
PROCEDURE INFORMATION: Exam: XR Left Shoulder Exam date and time: 07/20/2023 10:36 PM Age: 58 years old Clinical indication: Injury or trauma; Fall; Other: Unknown; Additional info: Fall pain TECHNIQUE: Imaging protocol: Radiologic exam of the left shoulder. Views: 2 or more views. COMPARISON: CR XR ribs LT mn 3V w CXR1V [id number] 07/20/2023 10:36 PM FINDINGS: Bones/joints: Mild degenerative disease of the left acromioclavicular joint. Minimally displaced fracture of the body of the left scapula with no definite extension into the glenoid. Multiple displaced fractures of the left ribs involving the lateral arch of the 3rd, 4th, 5th, 6th and 7th rib with surrounding soft tissue emphysema. The glenohumeral and acromioclavicular joints are congruent. Lungs: Left lower lung zone contusion. Soft tissues: Normal. XR/XR shoulder LT min 2V* [id number] IMPRESSION: Nondisplaced fracture of the body of the left scapula and multiple displaced fractures of the left ribs.
[2023-07-20 22:19] VITALS: BP 173/93; PULSE 60; RESP 13; O2SAT 99
[2023-07-20] MEDS: ketorolac 60 mg/2 mL INJ IM (22:28)
--- NOTE | 2023-07-20 22:35 | ED_ITS ---
HPI - Extremity Problem 2 General: Chief complaint: Extremity Injury, Upper Stated complaint: Injury Left Shoulder and ribs\Mayur Pal Time Seen by Provider: 07/20/23 22:06 History of Present Illness: Patient was bucked off a horse a couple hours ago landed on his left side and hurt his left shoulder left ribs. Shoulder and ribs are painful with palpation and inspiration. Review of Systems 2 General: Reports: 10 or more systems reviewed and unremarkable except in HPI and below PFSH ED 2 PFSH: Medical History Obesity (BMI 30-39.9) Hypertension Surgical History S/P ablation of atrial fibrillation 06/11/[address] Belle at [facility] Family History Mother Heart valve replaced Hypertension Hyperlipidemia Father Hypertension Hyperlipidemia Denies family history of Diabetes Stroke Social History Smoking and tobacco/nicotine status: never used tobacco/nicotine Alcohol intake: current Alcohol intake frequency: holidays/special occasions only Substance/Drug Use: never Physical Exam 2 Const: COMMON NORMALS: no acute distress, average body habitus, patient oriented x3, no limitations, healthy appearing, alert and well nourished HENMT: COMMON NORMALS: normocephalic, atraumatic, hearing grossly normal bilaterally, external ears normal, Normal external nose present, moist oral mucous membranes and oropharynx normal HEAD & SCALP: normocephalic and atraumatic NOSE: Normal external nose present EXTERNAL EAR: Yes external ears normal Neck/C-Spine: COMMON NORMALS: full ROM, no lymphadenopathy, supple, no meningeal signs, no JVD and Thyroid normal THYROID: Thyroid normal Chest: COMMONS NORMALS: normal inspection of the chest; negative for normal palpation of entire chest wall (Palpation of the left chest wall) Resp: COMMON NORMALS: normal respiratory effort, No retractions, No use of accessory muscles and clear to auscultation bilaterally AUSCULTATION: clear to auscultation bilaterally Cardio: COMMON NORMALS: no JVD, regular rate, regular rhythm, S1 normal heart sound present, S2 normal heart sound present, No gallops present (Cardio), No clicks present (Cardio), No murmurs present (Cardio) and No rub (Cardio) R ATE: regular rate RHYTHM: regular rhythm HEART SOUNDS: S1 normal heart sound present and S2 normal heart sound present GI: COMMON NORMALS: Normal to inspection, nondistended, normoactive bowel sounds present, Soft to palpation, non-tender, No hepatosplenomegaly present and no masses PALPATION: Yes Soft to palpation and Yes No hepatosplenomegaly present Neuro: COMMON NORMALS: patient oriented x3 SENSORIUM/ORIENTATION: Yes alert MENINGEAL SIGNS: Yes no meningeal signs Course 2 Vital Signs: Vital signs: Vital Signs Temperature 97.7 F 07/20/23 20:42 Pulse Rate 95 07/20/23 20:42 Respiratory Rate 18 07/20/23 20:42 Blood Pressure 121/84 07/20/23 20:42 Pulse Oximetry 94 07/20/23 20:42 Oxygen Delivery Me thod Room Air 07/20/23 20:42 MDM - Extremity (Nontraumatic) Medical Decision Making Chest x-ray was obtained showed multiple rib fractures with subcu emphysema and a minimally displaced fracture of the body left scapula, chest CT was obtained which showed these as well as well as a flail segment of ribs 3 and 4, with left lung contusions and pleural effusion. [facility] was consulted Dr. Tiffany BAIG accepted in a trauma transfer to the ER. Differential Diagnosis Unlikely herpes zoster, gout, cellulitis, superficial thrombophlebitis, deep venous thrombosis of upper extremity, lower extremity edema or deep vein thrombosis of lower extremity Medical Records I reviewed the patient's medical records. Lab Data I reviewed the patient's lab results. 07/21/23 02:15 07/21/23 02:15 Radiology Impressions Ribs X-Ray 07/20/23 21:47 IMPRESSION: 1. Multiple left rib fractures with soft tissue emphysema but no definite pneumothorax. Left lower lung zone contusion. 2. Left scapular fracture Shoulder X-Ray 07/20/23 21:47 IMPRESSION: Nondisplaced fracture of the body of the left scapula and multiple displaced fractures of the left ribs. Chest CT 07/21/23 00:46 IMPRESSION: 1. Multiple left rib fractures with segmental fractures of the left 3rd and 4th rib. No pneumothorax. Left lung contusions with small left pleural effusion. 2. Minimally displaced fracture of the body of the left scapula. COMMENTS: Consistent with the [employer]'s Incidental Findings Committee white paper (J Am Tobias Radiol 2018): Any incidental renal lesion less than 1 cm or classified as too small to characterize, or any incidental cystic renal lesion characterized as simple-appearing, is likely benign. No follow-up imaging is recommended for these lesions per consensus recommendations based on imaging criteria. Laboratory Results WBC 14.76 10^3/uL (3.29-11.43) H 07/21/23 02:15 RBC 4.78 10^6/uL (3.85-5.65) 07/21/23 02:15 Hgb 15.00 g/dL (11.27-16.99) 07/21/23 02:15 Hct 41.3 % (37-53) 07/21/23 02:15 MCV 86.4 fl (82-101) 07/21/23 02:15 MCH 31.4 pg (27-33) 07/21/23 02:15 MCHC 36.3 g/dL (30-55) 07/21/23 02:15 RDW 12.4 % (12.1-15.1) 07/21/23 02:15 Plt Count 295 10^3/cmm (157-399) 07/21/23 02:15 MPV 9.2 fL (7.4-10.4) 07/21/23 02:15 Neut % (Auto) 86.8 % 07/21/23 02:15 Lymph % (Auto) 5.7 % 07/21/23 02:15 [place] % (Auto) 6.7 % 07/21/23 02:15 Eos % (Auto) 0.1 % 07/21/23 02:15 Baso % (Auto) 0.3 % 07/21/23 02:15 Neut # (Auto) 12.81 10^3/uL (1.8-7.7) H 07/21/23 02:15 Lymph # (Auto) 0.8 10^3/uL (0.8-4.8) 07/21/23 02:15 [place] # (Auto) 1.0 10^3/uL (0.2-0.9) H 07/21/23 02:15 Eos # (Auto) 0.0 10^3/uL (0.0-0.8) 07/21/23 02:15 Baso # (Auto) 0.0 10^3/uL (0.0-0.1) 07/21/23 02:15 Nucleated RBC % (auto) 0 % 07/21/23 02:15 Nucleated RBCs # 0.0 /100WBC 07/21/23 02:15 PT 14.50 SECONDS (12.1-14.9) 07/21/23 02:15 INR 1.10 (0.8-1.2) 07/21/23 02:15 All radiology interpretation(s) finalized by discharge Discharge Plan Discharge Patient Disposition: Xfer Short-Term Hosp Clinical Impression: Closed flail chest, Contusion of left lung, Multiple fractures of rib involving four or more ribs, Fracture, scapula closed Condition: Stable Prescriptions: No Action amlodipine-valsartan 10-320 mg tablet 1 tab PO DAILY Qty: 90 3RF diclofenac sodium [Arthritis Pain (diclofenac)] 1 % gel 2 g topical QID PRN Rx Instructions: apply to single elbow, wrist or hand; for hand includes palm/fingers/back of hand escitalopram oxalate [Lexapro] 10 mg tablet 10 mg PO DAILY chlorthalidone 25 mg tablet 25 mg PO DAILY Qty: 30 5RF Referrals: Louie Taylor MD [Primary Care Provider] - Coding Level of Care Code ED Stem Threshing Machine Operator for Bradleyg Ifrah
[2023-07-20 23:49] VITALS: BP 106/70; PULSE 102; O2SAT 90
--- NOTE | 2023-07-21 00:46 | CTR_ITS ---
PROCEDURE INFORMATION: Exam: CT Chest Without Contrast; Diagnostic Exam date and time: 07/21/2023 1:40 AM Age: 58 years old Clinical indication: Injury or trauma; Additional info: Subq emphysem, multiple left rib FX, scapula FX TECHNIQUE: Imaging protocol: Diagnostic computed tomography of the chest without contrast. Radiation optimization: All CT scans at this facility use at least one of these dose optimization techniques: automated exposure control; mA and/or kV adjustment per patient size (includes targeted exams where dose is matched to clinical indication); or iterative reconstruction. COMPARISON: CR XR ribs LT mn 3V w CXR1V [id number] 07/20/2023 10:36 PM RADIATION DOSE METRICS: Total DLP (mGy-cm): 778 FINDINGS: Lungs: There are atelectatic changes in the right lower lobe. There are left upper lobe and left lower lobe infiltrates, likely representing lung contusion. Right lung is clear. Pleural spaces: Small left pleural effusion. No right pleural effusion. Heart: Unremarkable. No cardiomegaly. No pericardial effusion. Coronary arteries: No coronary calcifications. Lymph nodes: Unremarkable. No enlarged lymph nodes. Vasculature: Unremarkable. No aortic aneurysm. Kidneys and ureters: Left simple renal cyst measuring 6 mm. Bones/joints: There is a minimally displaced fracture of the anterior arch and lateral arches of the left 3rd rib and 4th ribs, consistent with segmental fractures. Minimally displaced fractures of the lateral arch of the 5th rib, 6th rib, 7th rib, 8th rib, 9th rib, with surrounding soft tissue emphysema. No right rib fractures. There is a minimally displaced fracture of the body of the left scapula with no extension into the left glenoid. Chronic compression deformities T5, T6, T7 and T8 vertebral bodies. DISH changes of the thoracic spine. Mild curvature of the thoracic spine convex to the right. Soft tissues: Soft tissue emphysema of the left chest wall. CT/CT chest wo con [id number] IMPRESSION: 1. Multiple left rib fractures with segmental fractures of the left 3rd and 4th rib. No pneumothorax. Left lung contusions with small left pleural effusion. 2. Minimally displaced fracture of the body of the left scapula. COMMENTS: Consistent with the [employer] [place] [employer]'s Incidental Findings Committee white paper (J Am Tobias Radiol 2018): Any incidental renal lesion less than 1 cm or classified as too small to characterize, or any incidental cystic renal lesion characterized as simple-appearing, is likely benign. No follow-up imaging is recommended for these lesions per consensus recommendations based on imaging criteria.
[2023-07-21 02:19] VITALS: BP 107/70; PULSE 99; O2SAT 91
[2023-07-21 02:24] LABS: Basophils % 0.3 %; Eosinophils % 0.1 %; Hematocrit 41.3 % (37-53); Lymphocytes # 0.8 10^3/uL (0.8-4.8); Lymphocytes % 5.7 %; Mean Corpuscular HGB Conc 36.3 g/dL (30-55); Mean Corpuscular Hemoglobin 31.4 pg (27-33); Mean Corpuscular Volume 86.4 fl (82-101); Mean Platelet Volume 9.2 fL (7.4-10.4); Monocytes % 6.7 %; Neutrophils # 12.81 10^3/uL (1.8-7.7); Neutrophils % 86.8 %; Nucleated Red Blood Cells % 0 %; Platelet Count 295 10^3/cmm (157-399); Red Blood Count 4.78 10^6/uL (3.85-5.65); Red Cell Distribution Width 12.4 % (12.1-15.1); White Blood Count 14.76 10^3/uL (3.29-11.43)
[2023-07-21 02:42] LABS: Alanine Aminotransferase 29 U/L (0-41); Alkaline Phosphatase 100 U/L (40-130); Anion Gap 14.5 (5-19); Aspartate Amino Transferase 29 U/L (0-40); Blood Urea Nitrogen 20 mg/dL (6-20); Calcium 8.9 mg/dL (8.5-10.5); Carbon Dioxide 28 mmol/L (22-29); Chloride 98 mmol/L (98-107); Creatinine Clr Calc Pharmacy 108.2329; Glomerular Filtration Rate 86.7 mL/min (90-130); Glucose 217 mg/dL (65-115); Osmolality Calculated 293 mOsm/kg (285-295); Potassium 3.5 mmol/L (3.5-5.1); Sodium 137 mmol/L (136-145)
[2023-07-21] MEDS: ondansetron 2 mg/ML SDV 2 mL 4 MG IVP (03:16)
[2023-07-21 03:17] VITALS: RESP 18
[2023-07-21] MEDS: morphine 4 mg/mL SDV 1 mL IVP (03:17)
[2023-07-21 03:49] VITALS: BP 102/66; PULSE 96; O2SAT 91
[2023-07-21 04:32] VITALS: BP 102/72; PULSE 82; O2SAT 100
== END 2023-07-21 04:34 | disposition short-term general hospital (02) ==
PROVIDERS: Emergency Provider Emergency Medicine; PCP Family Medicine
DX: S42.112A Displaced fracture of body of scapula, left shoulder, initial encounter for closed fracture (principal); S22.5XXA Flail chest, initial encounter for closed fracture; S27.321A Contusion of lung, unilateral, initial encounter; I10 Essential (primary) hypertension; V80.010A Animal-rider injured by fall from or being thrown from horse in noncollision accident, initial encounter
CPT/HCPCS: 71101; 71250; 73030; 80053; 85025; 85610; 96372; 96374; 96375; 99285; J1885; J2270; J2405